=== PATIENT | male | born 1970 | race African-American/Black ===

== ENCOUNTER 2016-02-22 16:27 | Emergency (ER) | payer MEDICARE, MEDICAID ==
--- NOTE | 2016-02-22 16:43 | ER Document Report ---
ED Medical Screen (RME) - General Stated Complaint: COUGH/TROUBLE BREATHING Mode of Arrival: Ambulatory Information source: Patient - With use of Kimberly Notes: Patient presents complaining of cough for the past month with sore throat. Patient does report occasional dizziness. Patient states symptoms have worsened recently which prompted his visit. hx: none I have greeted and performed a rapid initial assessment of this patient. A comprehensive ED assessment and evaluation of the patient, analysis of test results and completion of the medical decision making process will be conducted by additional ED providers. TRAVEL OUTSIDE OF THE [place] IN LAST 30 DAYS: No Past Medical History - Immunizations Immunizations up to date: No Physical Exam - Vital signs Vitals: Temp Pulse Resp BP Pulse Ox 98.0 F 69 20 127/76 H 100 02/22/16 16:31 02/22/16 16:31 02/22/16 16:31 02/22/16 16:31 02/22/16 16:31 - Respiratory Respiratory status: No respiratory distress Breath sounds: Nonproductive cough Course - Vital Signs Vital signs: Temp Pulse Resp BP Pulse Ox 98.0 F 69 20 127/76 H 100 02/22/16 16:31 02/22/16 16:31 02/22/16 16:31 02/22/16 16:31 02/22/16 16:31
[2016-02-22 17:27] LABS: ABSOLUTE LYMPHOCYTES (AUTO) 1.1 10^3/uL (0.5-4.7); ABSOLUTE MONOCYTES (AUTO) 0.7 10^3/uL (0.1-1.4); ABSOLUTE NEUT (AUTO) 2.5 10^3/uL (1.7-8.2); BASOPHILS % (AUTO) 0.8 % (0-2); EOSINOPHILS % (AUTO) 0.8 % (0-6); HEMATOCRIT 41.5 % (37.9-51.0); HEMOGLOBIN 13.3 g/dL (13.5-17.0); HGB HCT DIFFERENCE -1.6; LYMPHOCYTES % (AUTO) 25.3 % (13-45); MEAN CORPUSCULAR HEMOGLOBIN 25.8 pg (27.0-33.4); MEAN CORPUSCULAR VOLUME 81 fl (80-97); MONOCYTES % (AUTO) 16.3 % (3-13); RED BLOOD COUNT 5.15 10^6/uL (4.35-5.55); RED CELL DISTRIBUTION WIDTH 13.8 % (11.5-14.0); SEGMENTED NEUTROPHILS % (AUTO) 56.8 % (42-78); WHITE BLOOD COUNT 4.4 10^3/uL (4.0-10.5)
[2016-02-22 17:32] LABS: GLUCOSE 87 mg/dL (75-110); POTASSIUM 4.1 mmol/L (3.6-5.0); TOTAL PROTEIN 6.7 g/dL (6.3-8.2)
[2016-02-22 17:33] LABS: ALANINE AMINOTRANSFERASE 38 U/L (21-72); ALKALINE PHOSPHATASE 54 U/L (38-126); ANION GAP 7 (5-19); ASPARTATE AMINO TRANSFERASE 31 U/L (17-59); BILIRUBIN,TOTAL 0.4 mg/dL (0.2-1.3); BLOOD UREA NITROGEN 12 mg/dL (7-20); CALCIUM 9.5 mg/dL (8.4-10.2); CARBON DIOXIDE 33 mmol/L (22-30); CHLORIDE 100 mmol/L (98-107); CREATININE RESULT 1.16 mg/dL (0.52-1.25); SODIUM 140.3 mmol/L (137-145)
--- NOTE | 2016-02-22 18:30 | ER Document Report ---
ED General - General Chief Complaint: Chest Congestion Stated Complaint: COUGH/TROUBLE BREATHING Mode of Arrival: Ambulatory Information source: Patient Notes: 45 yr old male who is deaf, interviewed with Miguel presents witrh complaints of sob, with wheezing and productive whitre cough of 3 week duration. pt denies any fevers or chills. TRAVEL OUTSIDE OF THE [place] IN LAST 30 DAYS: No - HPI Onset: Other Onset/Duration: Persistent Quality of pain: No pain Severity: Mild Pain Level: 1 Associated symptoms: Productive cough, Shortness of breath Exacerbated by: Denies Relieved by: Denies Similar symptoms previously: No Recently seen / treated by doctor: No - Related Data Allergies/Adverse Reactions: No Known Allergies Allergy (Unverified 02/22/16 16:42) Past Medical History - General Information source: Patient - With use of Kimberly - Social History Smoking Status: Never Smoker Cigarette use (# per day): No Chew tobacco use (# tins/day): No Smoking Education Provided: No Frequency of alcohol use: None Drug Abuse: None Family History: None Patient has suicidal ideation: No Patient has homicidal ideation: No Renal/ Medical History: Denies: Hx Peritoneal Dialysis - Immunizations Immunizations up to date: No Review of Systems - Review of Systems Notes: REVIEW OF SYSTEMS: CONSTITUTIONAL : Denies fever, chills, or sweats. Denies recent illness. EENT: Denies eye, ear, throat, or mouth pain or symptoms. Denies nasal or sinus congestion or discharge. Denies throat, tongue, or mouth swelling or difficulty swallowing. CARDIOVASCULAR: Denies chest pain. Denies palpitations or racing or irregular heart beat. Denies ankle edema. RESPIRATORY: Admits to cough productive wheezing GASTROINTESTINAL: Denies abdominal pain or distention. Denies nausea, vomiting , or diarrhea. Denies blood in vomitus, stools, or per rectum. Denies black, tarry stools. Denies constipation. GENITOURINARY: Denies difficulty urinating, painful urination, burning, frequency, blood in urine, or discharge. MUSCULOSKELETAL: Denies back or neck pain or stiffness. Denies joint pain or swelling. SKIN: Denies rash, lesions or sores. HEMATOLOGIC : Denies easy bruising or bleeding. LYMPHATIC: Denies swollen, enlarged glands. NEUROLOGICAL: Denies confusion or altered mental status. Denies passing out or loss of consciousness. Denies dizziness or lightheadedness. Denies headache. Denies weakness or paralysis or loss of use of either side. Denies problems with gait or speech. Denies sensory loss, numbness, or tingling. Denies seizures. PSYCHIATRIC: Denies anxiety or stress. Denies depression, suicidal ideation, or homicidal ideation. ALL OTHER SYSTEMS REVIEWED AND NEGATIVE. Dictation was performed using [employer] voice recognition software PHYSICAL EXAMINATION: GENERAL: Well-appearing, well-nourished and in no acute distress. HEAD: Atraumatic, normocephalic. EYES: Pupils equal round and reactive to light, extraocular movements intact, sclera anicteric, conjunctiva are normal. ENT: Nares patent, oropharynx clear without exudates. Moist mucous membranes. NECK: Normal range of motion, supple without lymphadenopathy LUNGS: faint inspriatroy and expirtatory wheezing without any resp distress HEART: Regular rate and rhythm without murmurs ABDOMEN: Soft, nontender, nondistended abdomen. No guarding, no rebound. No masses appreciated. Musculoskeletal: Normal range of motion, no pitting or edema. No cyanosis. NEUROLOGICAL: Cranial nerves grossly intact. Normal speech, normal gait. Normal sensory, motor exams PSYCH: Normal mood, normal affect. SKIN: Warm, Dry, normal turgor, no rashes or lesions noted. Physical Exam - Vital signs Vitals: Temp Pulse Resp BP Pulse Ox 98.0 F 69 20 127/76 H 100 02/22/16 16:31 02/22/16 16:31 02/22/16 16:31 02/22/16 16:31 02/22/16 16:31 Course - Re-evaluation Re-evalutation: 02/22/16 18:32 Given patient's symptoms and abnormal vital signs are do not believe there is any life-threatening issues, I believe the patient has bronchitis as sequela of a viral infection, chest x-ray was normal.. Patient will be given inhaler steroids and is otherwise stable for follow-up After performing a Medical Screening Examination, I estimate there is LOW risk for ACUTE CORONARY SYNDROME, RESPIRATORY FAILURE, SEPSIS OR MENINGITIS, thus I consider the discharge disposition reasonable. The patient and I have discussed the diagnosis and risks, and we agree with discharging home with close follow- up. We also discussed returning to the Emergency Department immediately if new or worsening symptoms occur. We have discussed the symptoms which are most concerning (e.g., changing or worsening pain, trouble swallowing or breathing, neck stiffness, fever) that necessitate immediate return. - Vital Signs Vital signs: Temp Pulse Resp BP Pulse Ox 98.0 F 69 20 127/76 H 100 02/22/16 16:31 02/22/16 16:31 02/22/16 16:31 02/22/16 16:31 02/22/16 16:31 - Laboratory Result Diagrams: 02/22/16 16:55 02/22/16 16:55 Laboratory results interpreted by me: 02/22/16 02/22/16 16:55 16:55 Hgb 13.3 L MCH 25.8 L Monocytes % 16.3 H Carbon Dioxide 33 H - Diagnostic Test Radiology reviewed: Image reviewed, Reports reviewed - No acute abnormality Discharge - Discharge Clinical Impression: Bronchitis, Wheezing Condition: Stable Disposition: HOME, SELF-CARE Instructions: Bronchitis ([facility]LY [facility], 1928–1983) Additional Instructions: Follow up with your physician tomorrow for further care or return to the ED IMMEDIATELY if symptoms worsen or new concerns occur Prescriptions: Prednisone [Deltasone 20 mg Tablet] 3 tab PO DAILY 5 Days
[2016-02-22] MEDS ORDERED: PREDNISONE 20 MG TABLET PO ONE (18:34)
--- NOTE | 2016-02-22 18:38 | EKG REPORT ---
SEVERITY:- ABNORMAL ECG - SINUS RHYTHM VENTRICULAR PREMATURE COMPLEX NONSPECIFIC T ABNORMALITIES, LATERAL LEADS : Confirmed by: Bob Rehman MD 22-Feb-2016 18:37:58
[2016-02-22] MEDS ORDERED: ALBUTEROL SULFATE HFA (90 MCG/PUFF) 200 PUFF/8.5 GM MDI IH SCH (18:45)
[2016-02-22 18:47] VITALS: BP 122/80
== END 2016-02-22 18:47 | disposition home or self-care (01) ==
LOC: ER 16:27
DX: J40 Bronchitis, not specified as acute or chronic (principal); R06.2 Wheezing; R09.89 Other specified symptoms and signs involving the circulatory and respiratory systems; R06.02 Shortness of breath; R05 Cough
CPT/HCPCS: 93005; 99284; 36415; 87070; 87880; 85025; 80053; 71020; 93010; A9270; J3490; J7512

== ENCOUNTER 2016-09-20 15:55 | Emergency (ER) | payer MEDICARE, MEDICAID ==
[2016-09-20] MEDS ORDERED: ONDANSETRON 4 MG TAB.RAPDIS SL ONE (16:28)
[2016-09-20] MEDS ORDERED: HYDROCODONE/ACETAMINOPHEN 5-325 MG TABLET PO ONE (16:28)
--- NOTE | 2016-09-20 16:28 | ER Document Report ---
ED Medical Screen (RME) - General Chief Complaint: Abdominal Pain Stated Complaint: ABDOMINAL PAIN Time Seen by Provider: 09/20/16 16:09 Mode of Arrival: Ambulatory Information source: Patient TRAVEL OUTSIDE OF THE [place] IN LAST 30 DAYS: No - HPI Patient complains to provider of: Abdominal pain Onset: Other - 2 days Notes: 09/20/16 16:27 Patient is a 46-year-old deaf male who presents to the emergency room complaining of 2 day history of abdominal pain with dysuria and diarrhea, denies vomiting, denies fever - Related Data Allergies/Adverse Reactions: No Known Allergies Allergy (Verified 09/20/16 16:03) Past Medical History Renal/ Medical History: Denies: Hx Peritoneal Dialysis - Immunizations Immunizations up to date: No Physical Exam - Vital signs Vitals: Temp Pulse Resp BP Pulse Ox 98.0 F 82 16 125/73 98 09/20/16 16:00 09/20/16 16:00 09/20/16 16:00 09/20/16 16:00 09/20/16 16:00 Course - Vital Signs Vital signs: Temp Pulse Resp BP Pulse Ox 98.0 F 82 16 125/73 98 09/20/16 16:00 09/20/16 16:00 09/20/16 16:00 09/20/16 16:00 09/20/16 16:00
[2016-09-20 17:39] LABS: ALANINE AMINOTRANSFERASE 34 U/L (21-72); ALBUMIN 4.9 g/dL (3.5-5.0); ALKALINE PHOSPHATASE 69 U/L (38-126); ANION GAP 11 (5-19); ASPARTATE AMINO TRANSFERASE 28 U/L (17-59); BILIRUBIN,DIRECT 0.4 mg/dL (0.0-0.4); BILIRUBIN,TOTAL 0.8 mg/dL (0.2-1.3); BLOOD UREA NITROGEN 15 mg/dL (7-20); CALCIUM 10.3 mg/dL (8.4-10.2); CARBON DIOXIDE 26 mmol/L (22-30); CHLORIDE 104 mmol/L (98-107); CREATININE RESULT 1.44 mg/dL (0.52-1.25); GLUCOSE 94 mg/dL (75-110); LIPASE 55.7 U/L (23-300); SODIUM 141.2 mmol/L (137-145); TOTAL PROTEIN 8.3 g/dL (6.3-8.2)
[2016-09-20 18:48] LABS: APPEARANCE,URINE CLEAR; BILIRUBIN,URINE NEGATIVE (NEGATIVE); GLUCOSE, URINE NEGATIVE (NEGATIVE); KETONES,URINE TRACE mg/dL (NEGATIVE); LEUKOCYTE ESTERASE,URINE NEGATIVE (NEGATIVE); NITRITE,URINE NEGATIVE (NEGATIVE); PROTEIN,URINE NEGATIVE (NEGATIVE); URINE SPECIFIC GRAVITY 1.015; UROBILINOGEN,URINE NEGATIVE mg/dL (<2.0)
[2016-09-20 19:06] LABS: ABSOLUTE LYMPHOCYTES (AUTO) 0.9 10^3/uL (0.5-4.7); ABSOLUTE MONOCYTES (AUTO) 0.5 10^3/uL (0.1-1.4); ABSOLUTE NEUT (AUTO) 5.8 10^3/uL (1.7-8.2); BASOPHILS % (AUTO) 0.5 % (0-2); EOSINOPHILS % (AUTO) 0.5 % (0-6); HEMATOCRIT 43.6 % (37.9-51.0); HEMOGLOBIN 14.4 g/dL (13.5-17.0); HGB HCT DIFFERENCE -0.4; LYMPHOCYTES % (AUTO) 12.9 % (13-45); MEAN CORPUSCULAR HEMOGLOBIN 26.7 pg (27.0-33.4); MEAN CORPUSCULAR HGB CONC 32.9 g/dL (32.0-36.0); MEAN CORPUSCULAR VOLUME 81 fl (80-97); MONOCYTES % (AUTO) 7.5 % (3-13); RED BLOOD COUNT 5.39 10^6/uL (4.35-5.55); RED CELL DISTRIBUTION WIDTH 14.1 % (11.5-14.0); SEGMENTED NEUTROPHILS % (AUTO) 78.6 % (42-78); WHITE BLOOD COUNT 7.4 10^3/uL (4.0-10.5)
[2016-09-20] MEDS ORDERED: MINERAL OIL 30 ML UDCUP PR ONE (19:25)
--- NOTE | 2016-09-20 19:25 | ER Document Report ---
ED GI/ - General Mode of Arrival: Ambulatory Information source: Patient TRAVEL OUTSIDE OF THE [place] IN LAST 30 DAYS: No - HPI Patient complains to provider of: Abdominal pain, Other - constipation <ADAN DIETRICH - Last Filed: 09/20/16 23:30> <HU IRAHETA - Last Filed: 09/21/16 03:14> - General Chief Complaint: Abdominal Pain Stated Complaint: ABDOMINAL PAIN Time Seen by Provider: 09/20/16 16:09 Notes: Patient is a deaf 46-year-old male who is being translated by JAMES who presents to the emergency department today with complaints of abdominal pain for x2-3 days. Patient states he feels like "something is stuck that will not come out". Patient states he has been having some diarrhea but has had no solid stool. Patient states "I feel like I have to poop but it hurts". Patient denies any vomiting or blood in his stool. (ADAN DIETRICH) - Related Data Allergies/Adverse Reactions: No Known Allergies Allergy (Verified 09/20/16 16:03) Past Medical History - General Information source: Patient - Social History Smoking Status: Never Smoker Cigarette use (# per day): No Chew tobacco use (# tins/day): No Frequency of alcohol use: None Drug Abuse: None Lives with: Family Family History: Reviewed & Not Pertinent - Medical History Medical History: Negative Surgical Hx: Negative - Immunizations Immunizations up to date: No <ADAN DIETRICH - Last Filed: 09/20/16 23:30> Review of Systems - Review of Systems Constitutional: No symptoms reported EENT: No symptoms reported Cardiovascular: No symptoms reported Respiratory: No symptoms reported Gastrointestinal: See HPI, Abdominal pain, Constipation. denies: Vomiting, Blood streaked bowels Genitourinary: No symptoms reported Male Genitourinary: No symptoms reported Musculoskeletal: No symptoms reported Skin: No symptoms reported Hematologic/Lymphatic: No symptoms reported Neurological/Psychological: No symptoms reported -: Yes All other systems reviewed and negative <ADAN DIETRICH - Last Filed: 09/20/16 23:30> Physical Exam <ADAN DIETRICH - Last Filed: 09/20/16 23:30> <HU IRAHETA - Last Filed: 09/21/16 03:14> - Vital signs Vitals: Temp Pulse Resp BP Pulse Ox 98.0 F 82 16 125/73 98 09/20/16 16:00 09/20/16 16:00 09/20/16 16:00 09/20/16 16:00 09/20/16 16:00 - Notes Notes: PHYSICAL EXAM GENERAL: Alert, interacts appropriately. Appears uncomfortable secondary to pain. Deaf at baseline. HEAD: Normocephalic, atraumatic. EYES: Pupils equal, round, and reactive to light. Extraocular movements intact. ENT: Oral mucosa moist, tongue midline. NECK: Full range of motion. Supple. Trachea midline. LUNGS: Clear to auscultation bilaterally, no wheezes, rales, or rhonchi. No respiratory distress. HEART: Regular rate and rhythm. No murmurs, gallops, or rubs. ABDOMEN: Soft, mild diffuse abdominal tenderness with palpation. Non-distended. Bowel sounds present in all 4 quadrants. RECTAL: Performed with Maria Del Carmen RN in attendance. Large amount of firm brown stool , but not hard stool in the rectal vault. EXTREMITIES: Moves all 4 extremities spontaneously. No edema, radial and dorsalis pedis pulses 2/4 bilaterally. No cyanosis. NEUROLOGICAL: Alert and oriented x3. PSYCH: Normal affect, normal mood. SKIN: Warm, dry, normal turgor. No rashes or lesions noted. (ADAN DIETRICH) Course - Laboratory Result Diagrams: 09/20/16 17:48 09/20/16 17:00 <ADAN DIETRICH - Last Filed: 09/20/16 23:30> - Laboratory Result Diagrams: 09/20/16 17:48 09/20/16 17:00 <HU IRAHETA - Last Filed: 09/21/16 03:14> - Re-evaluation Re-evalutation: 09/20/16 21:26 CBC grossly unremarkable, CMP has elevated creatinine 1.44 however this gives a normal GFR as an -Indian male, otherwise unremarkable, urinalysis shows small blood, 1 RBC, no signs of infection. Given the large amount of firm stool on rectal examination and the complete relief of his pain after enema patient appears to have had constipation with fecal impaction and escape diarrhea. Patient will be discharged home, asked to follow-up for any new or concerning symptoms. (HU IRAHETA) - Vital Signs Vital signs: Temp Pulse Resp BP Pulse Ox 98.6 F 77 16 103/70 98 09/20/16 21:33 09/20/16 21:33 09/20/16 21:33 09/20/16 21:33 09/20/16 21:33 - Laboratory Laboratory results interpreted by me: 09/20/16 09/20/16 09/20/16 17:00 17:00 17:48 MCH 26.7 L RDW 14.1 H Seg Neutrophils % 78.6 H Lymphocytes % 12.9 L Creatinine 1.44 H Est GFR (Non-Af Amer) 53 L Calcium 10.3 H Total Protein 8.3 H Urine Ketones TRACE H Urine Blood SMALL H Discharge <ADAN DIETRICH - Last Filed: 09/20/16 23:30> <HU IRAHETA - Last Filed: 09/21/16 03:14> - Discharge Clinical Impression: Fecal impaction in rectum Constipation Qualifiers: Constipation type: unspecified constipation type Qualified Code(s): K59.00 - Constipation, unspecified Condition: Stable Disposition: HOME, SELF-CARE Additional Instructions: Constipation Constipation is a common problem. It is especially likely as you get older. Constipation is a common cause of abdominal pain, but sometimes causes no symptoms at all. Causes of constipation include certain medications, dehydration, diets, inactivity, and low-fiber intake. Rarely, it can be a symptom of underlying disease. The physician has evaluated you for this. Avoid constipation by eating a diet high in fiber, fruits, and vegetables. Drink plenty of liquids. Get regular exercise. If possible, avoid constipating medicines like narcotic pain medication. Some vitamin tablets can cause constipation. Stool softeners may be needed for difficult cases. An excellent stool softener is Konsyl which is available at [employer], and [facility] drug store. Just add a teaspoon to a glass of pineapple or orange juice daily or twice a day if needed. Laxatives are useful for occasional constipation. You should use them only when necessary. Too-frequent use can make your bowels dependent on them. Some over the counter laxatives available without prescription are: Milk of Magnesia, 1-2 tablespoons twice a day Dulcolax, 5 mg pill or 10 mg suppository. Citrate of Magnesia, 4-5 ounces a day for a day or two For acute constipation, Fleet's Enemas and Dulcolax suppositories are helpful. Chronic, therapeutic radiologist use of laxatives or enemas is not a good idea. Your bowel may become dependant on them. You do not need to have a bowel movement every day. Many people do fine with a bowel movement every three or four days. You should call your doctor or return for re-evaluation if you pass blood in the stool, or if you develop fever or increasing abdominal pain. Referrals: ZULAY RUSSO MD [Primary Care Provider] - Follow up as needed Scribe Attestation: 09/21/16 03:14 I personally performed the services described in the documentation, reviewed and edited the documentation which was dictated to the scribe in my presence, and it accurately records my words and actions. ([facility] IRA[facility]TA) Scribe Documentation - Scribe Written by Alyson:: Alyson Dewitt, 09/20/2016 [id number] acting as scribe for :: Whitley <ADAN DIETRICH - Last Filed: 09/20/16 23:30>
[2016-09-20 21:34] VITALS: BP 103/70
== END 2016-09-20 21:50 | disposition home or self-care (01) ==
LOC: ER 15:55
DX: K59.00 Constipation, unspecified (principal)
CPT/HCPCS: 99284; 36415; 83690; 85025; 80053; 81001; A9270 ×2; J3490; S0119